=== PATIENT | female | born 2000 | race Caucasian/White ===

== ENCOUNTER 2021-10-05 09:49 | Emergency (ER) | payer OTHER, SELFPAY ==
--- NOTE | ~2021-10-05 | XR_ITS ---
EXAMINATION: XR chest 2V DATE: 10/05/2021 10:56 INDICATION: Chest pain TECHNIQUE: PA and lateral views of the chest were obtained. COMPARISON: Chest radiograph dated 12/20/2020 FINDINGS: The lungs remain clear with no focal airspace opacities, pulmonary edema, pleural effusion or pneumot horax. The cardiomediastinal silhouette is normal. Slight S-shaped curvature of the thoracic spine. IMPRESSION: 1. No acute cardiopulmonary disease. Reviewed, dictated and finalized at location A. Y EQUIPMENT OPERATOR APPRENTICE
[2021-10-05 09:57] VITALS: BP 123/67; PULSE 75; RESP 20; TEMP 35.9; O2SAT 100
[2021-10-05 10:10] VITALS: BP 103/80; PULSE 70; RESP 21; O2SAT 98
[2021-10-05 10:31] VITALS: BP 102/55; PULSE 84; RESP 29; O2SAT 100
--- NOTE | 2021-10-05 10:49 | ECG_ITS ---
Measurements Intervals [place] Rate: 67 P: 62 HI: 174 QRS: 102 QRSD: 92 T: 53 QT: 404 QTc: 429 Interpretive Statements SINUS RHYTHM BORDERLINE T WAVE ABNORMALITY- ANTERIOR LEADS MINIMAL Q WAVES- INFERIOR LEADS BASELINE ARTIFACT- I, II, III, AVR, AVL, AVF, V1-V6 BORDERLINE ECG Electronically Signed On 10-05-2021 11:44:31 MAINTENANCE DEPARTMENT MANAGER by Alcides Alvarez D.O.
[2021-10-05 11:18] LABS: Basophils Percent Auto 0.6 % (0.2-1.2); Eosinophils Percent Auto 0.8 % (0-4.4); Hematocrit 37.8 % (37.0-47.0); Immature Granulocyte Absolute 0.02 K/mm3 (0.00-0.031); Immature Granulocyte Percent A 0.4 % (0-0.5); Lymphocytes Absolute Auto 1.45 K/mm3 (0.9-3.2); Lymphocytes Percent Auto 27.4 % (18.3-44.2); Mean Corpuscular HGB Conc 34.4 g/dl (32-36); Mean Corpuscular Hemoglobin 30.9 pg (26-34); Mean Corpuscular Volume 89.8 fl (80-100); Mean Platelet Volume 9.9 fl (7.4-10.4); Monocytes Absolute Auto 0.4 K/mm3 (0.1-0.6); Monocytes Percent Auto 6.6 % (2.6-8.5); Neutrophils Absolute Auto 3.4 K/mm3 (1.3-6.7); Neutrophils Percent Auto 64.2 % (45.5-73.1); Platelet Count Result 191 k/mm3 (150-375); Red Blood Count 4.21 M/mm3 (4.2-5.4); White Blood Count 5.3 K/mm3 (4.5-10.0)
[2021-10-05 11:26] LABS: Alanine Aminotransferase 23 U/L (4-35); Albumin Level 4.8 g/dL (3.5-5.1); Alkaline Phosphatase 64 U/L (38-126); Anion Gap 10 mmol/L (8-16); Aspartate Amino Transferase 37 U/L (14-36); Bilirubin,Total 0.5 mg/dL (0.2-1.3); Blood Urea Nitrogen 12 mg/dL (7-17); Calcium 9.9 mg/dL (8.4-10.2); Carbon Dioxide 26 mmol/L (22-30); Chloride 101 mmol/L (98-107); Estimated CRCL calculation 97 ml/min; Estimated Glomerular Filt Rate > 60; Glucose 103 mg/dL (65-110); Potassium 3.8 mmol/L (3.4-5.0); Sodium 137 mmol/L (137-145)
--- NOTE | 2021-10-05 11:35 | ED.GENADULT ---
HPI - General Adult General Chief complaint: Shortness of Breath/Dyspnea Stated complaint: SOB Time Seen by Provider: 10/05/21 10:15 History of Present Illness HPI narrative: 21-year-old female history of anxiety presented to the emergency department for evaluation of chest tightness after an anxiety attack this morning. Patient states that she had an anxiety attack this morning when she woke up at approximately 430. Patient states she was very restless and did have some associated nausea. Patient states that she did take her Klonopin was able to get back to sleep. Patient states when she woke up after her short rest she did have onset of chest tightness. Patient states he does sometimes have chest tightness with her panic attacks but this feels worse than normal. Patient does have COVID exposure because her brother that she lives with does have COVID. Patient did take a home COVID test that was negative. Related Data Home Medications Medication Instructions Recorded Confirmed clonazepam [Klonopin] 1 mg PO HS PRN 10/05/21 escitalopram oxalate [Lexapro] 20 mg PO DAILY 10/05/21 eszopiclone [Lunesta] 2 mg PO HS 10/05/21 hydroxyzine HCl 25 mg PO PRN 10/05/21 Allergies Allergy/AdvReac Type Severity Reaction Status Date / Time cefaclor [From [facility]] Allergy Hives Verified 10/05/21 10:01 Review of Systems Review of Systems: CONSTITUTIONAL: Denies fever, chills, or sweats. EYES: Denies visual changes, redness, or discharge. ENT: Denies rhinorrhea, congestion, sore throat, or otalgia. CARDIOVASCULAR: Chest tightness RESPIRATORY: Denies cough or dyspnea. GASTROINTESTINAL: Denies abdominal pain, nausea, vomiting, or diarrhea. GENITOURINARY: Denies dysuria or hematuria. SKIN: Denies rash or itching. MUSCULOSKELETAL: Denies back pain, joint pain, or myalgia. NEUROLOGIC: Denies headache, numbness, or weakness. PSYCHIATRIC: Anxiety All systems reviewed & are unremarkable except as noted in HPI and below Exam Narrative: APPEARANCE: Well appearing, no pain, no distress, well-nourished. HEAD: normocephalic, atraumatic. EYES: PERRLA/EOMI, conjunctivae clear. RESPIRATORY: Airway patent, respirations nonlabored. Clear to auscultation bilaterally, no rales, rhonchi, wheezing. CARDIOVASCULAR: Regular rate and rhythm without murmurs rubs or gallops. ABDOMINAL: Soft, nontender, nondistended, normal bowel sounds MUSCULOSKELETAL: Moves all extremities. Strength/ROM intact, No edema, No calf tenderness. NEURO: Alert. Cranial nerves II through XII intact. SKIN: Warm, dry. Normal Color Course Course Emergency Course: Patient was updated the results of her labs and imaging. Patient's vital signs were stable in time done in emergency room. Patient was not hypoxic and was satting under percent on room air. Patient was not tachycardic. Patient did feel improved with the breathing treatment. In discussion with this patient will be provided an albuterol inhaler for home. COVID test is still pending Patient was informed to continue to continue to quarantine until her COVID test is resulted. All question concerns were addressed. Patient was comfortable with the plan of discharge and close follow-up. Patient will have close follow-up with her primary care physician. Vital Signs Vital signs: Vital Signs Temperature 96.7 F L 10/05/21 09:57 Pulse Rate 75 10/05/21 09:57 Respiratory Rate 20 10/05/21 09:57 Blood Pressure 123/67 10/05/21 09:57 Pulse Oximetry 100 10/05/21 09:57 Temperature 96.7 F L 10/05/21 09:57 Pulse Rate 77 10/05/21 12:39 Respiratory Rate 15 10/05/21 12:39 Blood Pressure 117/98 H 10/05/21 12:39 Pulse Oximetry 100 10/05/21 12:39 Medical Decision Making Vital Signs Vital Signs: Vital Signs Temperature 96.7 F L 10/05/21 09:57 Pulse Rate 75 10/05/21 09:57 Respiratory Rate 20 10/05/21 09:57 Blood Pressure 123/67 10/05/21 09:57 Pulse Oximetry 100 10/05/21 09:57 Temperature
[2021-10-05] MEDS: LORazepam (*CRX) 0.5 MG TABLET PO (11:57)
[2021-10-05] MEDS: ONDANSETRON HCL ODT 4 MG TABLET PO (11:57)
[2021-10-05] MEDS: ALBUTEROL SULFATE NEB 2.5 MG/0.5 ML INH 5 MG INHALATION (12:08)
[2021-10-05 12:15] VITALS: PULSE 67; RESP 18; O2SAT 100
--- NOTE | 2021-10-05 12:26 | PC.NURSE ---
Patient sitting up on stretcher eating boxed lunch. Respiratory adminsitered ordered breathing treatment. Ordered covid swab obtained and sent to the laboratory.
[2021-10-05 12:39] VITALS: BP 117/98; PULSE 77; RESP 15; O2SAT 100
[2021-10-05 16:35] LABS: SARS-CoV-2 RNA PCR Negative
== END 2021-10-05 13:11 | disposition home or self-care (01) ==
PROVIDERS: Emergency Provider Emergency Medicine
DX: R07.89 Other chest pain (principal); F41.9 Anxiety disorder, unspecified; Z20.822 Contact with and (suspected) exposure to COVID-19; R94.31 Abnormal electrocardiogram [ECG] [EKG]
CPT/HCPCS: 36415; 71046; 80053; 85025; 93005; 94640; 99284; A9270; C9803; U0003; U0005